=== PATIENT | female | born 1975 | race Caucasian/White ===

== ENCOUNTER 2020-04-08 21:51 | Emergency (ER) | payer BC, SELFPAY ==
[2020-04-08 21:52] VITALS: TEMP 36.4; BMI 26.3
[2020-04-08 22:04] VITALS: BP 142/84
--- NOTE | 2020-04-08 22:08 | CT_ITS ---
STUDY: CT BRAIN WITHOUT CONTRAST REASON FOR EXAM: Female, 44 years old. FALL/VOMITING/WEAK/DIZZY. Hx of [place]''s disease-best films RADIATION DOSAGE (If Supplied By Facility): CTDIvol = ( 44.99 ) mGy, DLP = ( 846.73 ) mGycm TECHNIQUE: Transaxial CT imaging of the brain was performed without administration of intravenous contrast material. Individualized dose optimization techniques were used for this CT. COMPARISON: No relevant priors. FINDINGS: Normal soft tissue structures. Normal calvarium. Normal size ventricles and extra-axial spaces for the patient''s age. Normal white matter tracts of the cerebral hemispheres. Normal basal ganglia and thalami. Normal brainstem. Normal cerebellum. There is no intracranial hemorrhage. There are no findings of an acute ischemic infarction. Normal visualized paranasal sinuses. CT/Brain/Head without Contrast IMPRESSION: No fracture or hemorrhage. Electronically Signed: Jerad Marcial MD at 23:16 EDT Tel , Service support ,
--- NOTE | 2020-04-08 22:09 | CT_ITS ---
STUDY: CT CERVICAL SPINE WITHOUT CONTRAST REASON FOR EXAM: Female, 44 years old. FALL/VOMITING/WEAK/DIZZY. Hx of [place]''s disease-best films RADIATION DOSAGE (If Supplied By Facility): CTDIvol = ( 19.55 ) mGy, DLP = ( 357.55 ) mGycm TECHNIQUE: High resolution transaxial imaging was performed without contrast material. Sagittal and coronal images were reconstructed. Individualized dose optimization techniques were used for this CT. COMPARISON: None FINDINGS: Craniocervical junction is intact. Degenerative changes are present involving the atlantodental articulation. Normal odontoid process. Alignment is within normal limits. Multilevel degenerative disease is present. No acute fractures or dislocations are seen. CT/Spine Cervical without Contras IMPRESSION: No acute osseous injury is evident. Comment: MRI is more sensitive than CT in detecting cord injury, ligament injury, and epidural hematoma. If there is continued clinical concern for any of these entities, MRI correlation should be considered if possible. Electronically Signed: Jerad Marcial MD at 23:45 EDT Tel , Service support ,
--- NOTE | 2020-04-08 22:09 | EKG12_ITS ---
Test Reason : FALL Blood Pressure : / mmHG Vent. Rate : 080 BPM Atrial Rate : 080 BPM P-R Int : 154 ms QRS Dur : 072 ms QT Int : 406 ms P-R-T Axes : 044 020 026 degrees QTc Int : 468 ms Normal sinus rhythm Nonspecific ST abnormality Abnormal ECG Confirmed by CATA RANDOLPH, HARDEEP ([id number]), senior editor VIJI GAMA ([id number]) on 04/11/2020 9:42:22 AM Referred By: PEYTON Confirmed By:HARDEEP IVY MD
--- NOTE | 2020-04-08 22:20 | ED.DCSUM_ITS ---
- ER Visit Summary Date of Service: 04/08/20 Chief Complaint: Fall History of Present Illness: The patient is a 44 F with no primary care physician. She has a history of Freeman's disease that was diagnosed 7 years ago. She is a poor informant. Family reports that approximately 130 this afternoon patient was walking and lost her balance and fell. She hit her head. She not have a loss of consciousness. She is not on anticoagulants. However, since that time she is vomited 5 times. No blood in her emesis. She complains of a headache is 8 out of 10 severity. She complains of neck pain instead of 10 severity. She complains of low back pain is 8 out of 10 in severity. She denies any shoulder, wrist, or hip pain. Patient denies fever or chills. No change in vision. No sore throat or cough. No chest pain or trouble breathing. She denies abdominal pain or diarrhea. No dysuria or frequency. She does complain of generalized weakness. Physical Examination: Vitals: Stable. Afebrile. General: Well-nourished and well-developed. Head: Normocephalic atraumatic. Neck: Supple, no lymphadenopathy. No JVD. Mild diffuse tenderness palpation over the entire cervical spine. No point tenderness. Full range of motion without a difficulty. Cardiovascular: Regular rate and rhythm. No murmurs. Respiratory: No respiratory distress. Clear to auscultation bilaterally. Abdominal: Soft, nontender, nondistended, normal bowel sounds. No guarding, rebound, or peritoneal signs. Back: Mild diffuse tenderness outpatient of the lumbar spine. No point tenderness. Extremities: Nontender, no edema. No pain over her shoulders, wrists, or hips. Skin: Normal color, no rash. Neurologic: Alert and oriented ?3. Cranial nerves II through XII are intact. Normal strength and sensation. Diffuse chorea form movement that is involuntary. Psych: Normal affect. Test Results: CBC shows a white count of 12.3, 7 neutrophils of 90, lymphocytes of 7. Chem-7 shows a chloride 11 and glucose of 119. LFTs are normal. CPK is 51. EKG is sinus at 80 with no acute changes. There is no old EKG for comparison. CT brain shows no acute disease. CT C-spine shows no acute disease. LS spine x-ray showed no acute disease. Urinalysis is negative. Clinical Impression(s) from Imaging Studies Brain CT 04/08/20 22:08 IMPRESSION: No fracture or hemorrhage. Electronically Signed: Jerad Marcial MD at 23:16 EDT Tel , Service support , Cervical Spine CT 04/08/20 22:09 IMPRESSION: No acute osseous injury is evident. Comment: MRI is more sensitive than CT in detecting cord injury, ligament injury, and epidural hematoma. If there is continued clinical concern for any of these entities, MRI correlation should be considered if possible. Electronically Signed: Jerad Marcial MD at 23:45 EDT Tel , Service support , Lumbar Spine X-Ray 04/08/20 22:55 IMPRESSION: No acute osseous injury is evident. If there is further clinical concern for a radiographically occult spinal fracture, consider CT correlation if possible. Electronically Signed: Jerad Marcial MD at 23:42 EDT Tel , Service support , Emergency Department Course and Treatment: Patient had an IV placed. She was given morphine and Zofran IV. She is resting more comfortably. We did attempt to do orthostatic vital signs. Patient is unable to stand for these. Treatment Plan: In my opinion the patient's Freeman disease has gotten to the point where she is not safe at home. I discussed this with the patient and family. They agree. The patient is from [place]. She will be discussed with [facility], the closest hospital to her home, as I suspect she will require either assisted living or care home facility. Disposition: Transferred in stable condition. Impression: 1. Fall. 2. Ryne's disease. This note was generated with INBE[employer]ation software. It may contain incorrect words, spelling, and punctuation that were not noted in review of the chart prior to signing ED Disposition - Plan for ED Patient: Referrals: [facility] Doctor,Out of [Primary Care Provider] -
[2020-04-08 22:32] LABS: Absolute Lymphocyte Count 0.82 X10^3/uL (0.83-4.51); Absolute Neutrophil Count 11.1 X10^3/uL (2.0-7.7); Basophil# 0.02 X10^3/uL; Basophil% 0.2 % (0-1); Eosinophil# 0.01 X10^3/uL; Eosinophils% 0.1 % (0-5); Hemoglobin 14.6 g/dL (12.0-15.0); Lymphocyte # 0.82 X10^3/ul (4.0); Lymphocyte % 6.7 % (19-41); Mean Corp Hgb Conc 33.2 g/dL (32-36); Mean Corpuscular Hgb 29.5 pg (27.0-32.0); Mean Corpuscular Volume 88.9 fL (81-99); Mean Platelet Vol. 10.1 fl (6.2-12.0); Monocyte# 0.35 X10^3/uL; Monocyte% 2.8 % (0-10); NRBC Flagged by Analyzer 0 % (0-5); Neutrophil # 11.05 X10^3/uL (2.7-7.7); Neutrophil % 89.8 % (47-70); Platelet Count 261 K/mm3 (150-450); RBC Distribution Width CV 12.1 % (11.6-14.6); RBC Distribution Width SD 39.5 fl (35.1-43.9); Red Blood Count 4.95 M/mm3 (4.2-5.4); White Blood Count 12.3 K/mm3 (4.4-11.0)
[2020-04-08] MEDS: 0.9% Normal Saline 1,000 ML 1000 ML IV (22:32)
[2020-04-08] MEDS: Ondansetron 4 MG/2 ML Vial IV (22:32)
[2020-04-08] MEDS: Morphine 4 MG/ML Syringe IV (22:32)
[2020-04-08 22:43] LABS: AST(SGOT) 19 U/L (15-37); Alanine Aminotransfer ALT/SGPT 20 U/L (13-56); Albumin, Serum 3.8 g/dL (3.2-5.0); Alkaline Phosphatase 66 U/L (45-117); Anion Gap 5 (5-15); BUN 13 mg/dL (7-18); BUN/Creat Ratio 21.8 RATIO (10-20); Calcium,Total 8.8 mg/dL (8.5-10.1); Chloride 111 mmol/L (98-107); EST Glomerular Filtration Rate 117 mL/min (>60); Est Glom Filt Rate - Afr Amer 142 mL/min (>60); Estimated Creatinine Clearance 105.47 ml/min; Globulin 3.7 g/dL (2.2-4.2); Glucose 119 mg/dL (74-106); Potassium 3.7 mmol/L (3.5-5.1); Protein, Total 7.5 g/dL (6.4-8.2); Sodium Level 143 mmol/L (136-145)
[2020-04-08 22:45] LABS: CPK Total, Creatine Kinase 51 U/L (26-192)
--- NOTE | 2020-04-08 22:55 | RAD_ITS ---
STUDY: X-RAY - LUMBAR SPINE REASON FOR EXAM: Female, 44 years old. fall, dizziness, back pain, patient has Angelina''s disease TECHNIQUE: 2 view(s) of the lumbar spine were obtained. COMPARISON: None FINDINGS: Normal lumbar lordosis. There is no substantial scoliosis. There is a normal alignment of the vertebrae. Normal vertebral bodies and endplates. Normal disc space heights. The soft tissue structures are unremarkable. RAD/Lumbar Spine 2 or 3 Views IMPRESSION: No acute osseous injury is evident. If there is further clinical concern for a radiographically occult spinal fracture, consider CT correlation if possible. Electronically Signed: Jerad Marcial MD at 23:42 EDT Tel , Service support ,
[2020-04-08 23:14] LABS: Red Blood Cells-Urine 0 SEEN /hpf (0-5)
[2020-04-08 23:17] LABS: Color, Urine Yellow (Yellow); Glucose, Dipstick Normal (Normal); Ketone-Dipstick Negative (Negative); Leukocyte Esterase-Dipstick Negative /ul (Negative); Nitrite-Dipstick Negative (Negative); Occult Blood-Urine Negative /ul (Negative); Protein-Dipstick Negative (Negative); Specific Gravity, Urine 1.015 (1.002-1.030); Urine Bilirubin Dipstick Negative (Negative); Urine Clarity Clear (Clear); Urine Urobilinogen 4 mg/dl (Normal)
[2020-04-08 23:28] LABS: Bacteria 2+ /hpf (None Seen); Mucous, Urine 2+ /hpf (<or=2+); Squamous Epithelial Cells - UA 0-5 SEEN /hpf (5-10); White Blood Cells 0-5 SEEN /hpf (0-5)
[2020-04-08 23:29] LABS: Amorphous Sediment 1+
[2020-04-09] VITALS: BP 145/83; PULSE 111; RESP 19; O2SAT 95
[2020-04-09] MEDS: Ondansetron 4 MG/2 ML Vial IV (00:28)
[2020-04-09 01:09] VITALS: BP 142/85; PULSE 90; RESP 17; O2SAT 97
== END 2020-04-09 01:43 | disposition short-term general hospital (02) ==
PROVIDERS: Emergency Provider Emergency Medicine
DX: G10 Huntington's disease (principal); W01.0XXA Fall on same level from slipping, tripping and stumbling without subsequent striking against object, initial encounter; Y93.01 Activity, walking, marching and hiking
CPT/HCPCS: 70450; 72100; 72125; 80053; 81001; 82550; 85025; 93005; 99285; J7030; A4216; J2405